=== PATIENT | male | born 1985 | race Caucasian/White ===

== ENCOUNTER 2022-04-25 20:18 | Emergency (ER) | payer SELFPAY ==
[~2022-04-25] VITALS: Ht 167.6 cm; Wt 72.6 kg
[2022-04-25 20:32] VITALS: BP 122/77
--- NOTE | 2022-04-25 20:38 | NUR ---
TO LOBBY FOLLOWING TRIAGE
--- NOTE | 2022-04-25 21:21 | NUR ---
PT TO 11
--- NOTE | 2022-04-25 22:45 | NUR ---
FIRST CONTACT WITH PT. SEE INITIAL ASSESSMENT
--- NOTE | 2022-04-25 22:45 | NUR ---
RADIOLOGY AT BEDSIDE
[2022-04-25] MEDS ORDERED: IBUP-2213 PO (22:56)
--- NOTE | 2022-04-25 23:42 | NUR ---
Patient discharged with v/s stable. Written and verbal after care instructions given and explained. Patient verbalized understanding. Ambulatory with steady gait. All questions addressed prior to discharge. Advised to follow up with PMD.
== END 2022-04-25 23:42 | disposition home or self-care (01) ==
LOC: MED 20:18
DX: S63.631A Sprain of interphalangeal joint of left index finger, initial encounter (principal); X58.XXXA Exposure to other specified factors, initial encounter; Y93.89 Activity, other specified; Y92.89 Other specified places as the place of occurrence of the external cause; Y99.8 Other external cause status
CPT/HCPCS: 29130; 73130; 99283; Q0092

== ENCOUNTER 2024-02-12 12:31 | Emergency (ER) | payer OTHER ==
[~2024-02-12] VITALS: Ht 175.3 cm; Wt 81.6 kg
[~2024-02-12 12:31] MED LIST: IBUP-2213 PO
[2024-02-12 12:47] VITALS: BP_SYST 118; BP_DIAS 59; BP_DIAS 85; PULSE 72; PULSE 82; RESP 16; TEMP 98.4; O2SAT 96
== END 2024-02-12 14:24 | disposition home or self-care (01) ==
LOC: MED 12:31
DX: G56.31 Lesion of radial nerve, right upper limb (principal); Z79.899 Other long term (current) drug therapy
CPT/HCPCS: 99283